=== PATIENT | female | born 1975 | race Caucasian/White ===

== ENCOUNTER → 2020-02-22 09:58 | Outpatient (CLI) | payer BC, SELFPAY ==
--- NOTE | ~2020-02-22 | MM_ITS ---
EXAMINATION: MM screening [facility] BI w lizandro HISTORY: Screening mammogram TECHNIQUE: Craniocaudal and mediolateral oblique 3-D tomosynthesis images were obtained and synthetic 2-D images were generated. CAD analysis was submitted and interpreted. COMPARISON: 02/10/2019, 01/09/2018, 11/26/2016 BREAST PARENCHYMAL COMPOSITION: The breasts are heterogeneously dense, which may obscure small masses . FINDINGS: Multiple obscured masses are seen in the breasts which do not demonstrate suspicious interv al change and are most consistent with cysts. There is no evidence of suspicious mass, calcification, or architectural distortion to suggest malignancy in either breast. There has been no suspicious int erval change. IMPRESSION: 1. No mammographic evidence of malignancy. 2. Recommend routine screening mammography in one year. BI-RADS Category 2: Benign finding(s). Reviewed, dictated and finalized at location A.
== END ==
PROVIDERS: Visit Provider Obstetrics & Gynecology
DX: Z12.31 Encounter for screening mammogram for malignant neoplasm of breast (principal)
CPT/HCPCS: 77063; 77067

== ENCOUNTER → 2021-03-30 14:38 | Outpatient (CLI) | payer BC, SELFPAY ==
--- NOTE | ~2021-03-30 | MM_ITS ---
EXAMINATION: MM screening art BI w lizandro HISTORY: Screening TECHNIQUE: Craniocaudal and mediolateral oblique 3-D tomosynthesis images were obtained and synthetic 2-D images were generated. CAD analysis was submitted and interpreted. COMPARISON: Comparison to multiple prior studies sequentially, with oldest reviewed study dated 05/17. BREAST PARENCHYMAL COMPOSITION: The breasts are heterogeneously dense, which may obscure small masses . FINDINGS: There is a developing mass in the upper outer quadrant of the right breast, middle third. T he left breast is stable without evidence for malignancy. IMPRESSION: 1. Developing right breast mass, upper outer quadrant. 2. Additional mammographic views and possible breast ultrasound are recommended. BI-RADS Category 0: Incomplete: Needs additional imaging evaluation. Reviewed, dictated and finalized at location A. IMPRESSION: 1. Developing right breast mass, upper outer quadrant. 2. Additional mammographic views and possible breast ultrasound are recommended . BI-RADS Category 0: Incomplete: Needs additional imaging evaluation.
== END ==
PROVIDERS: PCP Physician Assistant; Visit Provider Obstetrics & Gynecology
DX: Z12.31 Encounter for screening mammogram for malignant neoplasm of breast (principal); R92.8 Other abnormal and inconclusive findings on diagnostic imaging of breast
CPT/HCPCS: 77063; 77067

== ENCOUNTER → 2021-04-27 08:40 | Outpatient (CLI) | payer BC, SELFPAY ==
--- NOTE | ~2021-04-27 | MMUS_ITS ---
EXAMINATION: MM diagnostic art RT w lizandro, US breast RT limited HISTORY: Developing upper outer quadrant right breast mass reported on 03/30/2021 screening mammogram TECHNIQUE: Additional 3-D tomosynthesis images of the right breast were performed and synthetic 2-D i mages were generated. CAD analysis was submitted and interpreted. High resolution upper outer quadran t right breast ultrasound was performed. COMPARISON: 03/30/2021 bilateral digital screening mammogram FINDINGS: MAMMOGRAPHIC FINDINGS: There is an approximately 10 x 13 mm partially circumscribed mass in the upper outer quadrant of the right breast at mid depth. No other suspicious mass or architectural distortion, malignant calcification, skin thickening or ret raction is detected. ULTRASOUND: 11:00 2 cm from nipple: 1.8 x 4 mm circumscribed benign-appearing lymph node 10:00 6 cm from nipple: Complex oval circumscribed 1.4 x 0.7 x 1.4 cm mass, which is largely cystic, with thickened septa measuring up to almost 2 mm width. There is some color flow vascularity of the t hickened septal area. Ultrasound-guided biopsy is recommended. 10:00 4 cm from nipple: 2.5 x 4.2 mm circumscribed sonolucency, likely a cyst IMPRESSION: 1. Complex right breast 10:00 mass. The lesion is largely cystic, with thickened septae with vascular ity. The lesion is suspicious. 2. Ultrasound-guided biopsy is recommended at right breast 10:00 complex mass BI-RADS category 4, suspicious findings. Dr. Bergeron telephoned the report and ultrasound guided biopsy recommendation on 04/27/2021 at 1035 hours to Jamar Chadwick Reviewed, dictated and finalized at location A. IMPRESSION: 1. Complex right breast 10:00 mass. The lesion is largely cystic, with thickene d septae with vascularity. The lesion is suspicious. 2. Ultrasound-guided biopsy is recommended at right breast 10:00 complex mass BI-RADS category 4, suspicious findings. Dr. Bergeron telephoned the report and ultrasound guided biopsy recommendation on at 1035 hours to Jamar Chadwick
== END ==
PROVIDERS: PCP Physician Assistant; Visit Provider Obstetrics & Gynecology
DX: R92.8 Other abnormal and inconclusive findings on diagnostic imaging of breast (principal)
CPT/HCPCS: 76642; 77061; 77065; G0279

== ENCOUNTER → 2022-05-07 11:40 | Outpatient (CLI) | payer BC, SELFPAY ==
--- NOTE | ~2022-05-07 | MM_ITS ---
EXAMINATION: MM screening [facility] BI w lizandro HISTORY: Screening mammogram TECHNIQUE: Craniocaudal and mediolateral oblique 3-D tomosynthesis images were obtained and synthetic 2-D images were generated. CAD analysis was submitted and interpreted. COMPARISON: 04/27/2021, 03/30/2021, 02/22/2020 BREAST PARENCHYMAL COMPOSITION: The breasts are heterogeneously dense, which may obscure small masses . FINDINGS: There has been interval biopsy of a right breast mass. There is no suspicious mass, calcifi cation, or architectural distortion to suggest malignancy in either breast. There has been no suspici ous interval change. IMPRESSION: 1. No mammographic evidence of malignancy. 2. Recommend routine screening mammography in one year. BI-RADS Category 2: Benign finding(s). Reviewed, dictated and finalized at location A.
== END ==
PROVIDERS: PCP Physician Assistant; Visit Provider Obstetrics & Gynecology
DX: Z12.31 Encounter for screening mammogram for malignant neoplasm of breast (principal)
CPT/HCPCS: 77063; 77067

== ENCOUNTER → 2023-07-14 14:44 | Outpatient (CLI) | payer BC, SELFPAY ==
--- NOTE | ~2023-07-14 | MM_ITS ---
EXAMINATION: MM screening [facility] BI w lizandro HISTORY: Screening mammogram TECHNIQUE: Craniocaudal and mediolateral oblique 3-D tomosynthesis images were obtained and synthetic 2-D images were generated. CAD analysis was submitted and interpreted. COMPARISON: Serial mammogram examinations dating back to 02/10/2019 and 04/27/2021 Limited right breast ultrasound examination BREAST PARENCHYMAL COMPOSITION: The breasts are heterogeneously dense, which may obscure small masses . FINDINGS: There is asymmetry in the upper outer left breast. Diagnostic left mammogram and left breas t ultrasound examination are recommended. Otherwise no suspicious mass, architectural distortion, malignant calcification, skin thickening or r etraction or significant new or developing density of either breast is detected. There is a biopsy marker in the upper outer right breast. IMPRESSION: 1. Left upper outer quadrant mammographic asymmetry 2. Diagnostic left mammogram and left breast ultrasound examination are recommended BI-RADS Category 0: Incomplete: Needs additional imaging evaluation. Reviewed, dictated and finalized at location A. L CUTTER IMPRESSION: 1. Left upper outer quadrant mammographic asymmetry 2. Diagnostic left mammogram and left breast ultrasound examination are recomme nded BI-RADS Category 0: Incomplete: Needs additional imaging evaluation.
== END ==
PROVIDERS: PCP Obstetrics & Gynecology; Visit Provider Obstetrics & Gynecology
DX: Z12.31 Encounter for screening mammogram for malignant neoplasm of breast (principal); R92.8 Other abnormal and inconclusive findings on diagnostic imaging of breast
CPT/HCPCS: 77063; 77067

== ENCOUNTER → 2023-08-01 07:46 | Outpatient (CLI) | payer BC, SELFPAY ==
--- NOTE | ~2023-08-01 | MMUS_ITS ---
EXAMINATION: MM diagnostic art LT w lizandro, US breast LT limited HISTORY: Follow-up left breast asymmetries TECHNIQUE: Additional 3-D tomosynthesis images of the left breast were performed and synthetic 2-D im ages were generated. CAD analysis was submitted and interpreted. High resolution Limited left breast ultrasound was performed. COMPARISON: Comparison to multiple prior studies sequentially, with oldest reviewed study dated 04/12. BREAST PARENCHYMAL COMPOSITION: The breasts are heterogeneously dense, which may obscure small masses FINDINGS: MAMMOGRAPHIC FINDINGS: Asymmetries in the upper outer quadrant are not significantly changed dating back to 02/10/2019. No di screte mass or architectural distortion. No suspicious calcifications. ULTRASOUND: Limited left breast ultrasound: At 2:00, 6 cm from the nipple, there is a 4 mm cyst. At 2:00, 6 cm fr om the nipple, there is a 4 mm intramammary lymph node. At 2:00, 6 cm from the nipple, there is an ov al 3 mm hypoechoic mass with low level internal echoes, no posterior features or internal vascularity . At 2:00, 5 cm from the nipple, there is an oval hypoechoic 6 mm mass which appears solid without po sterior acoustic shadowing or internal vascularity. There is an adjacent 8 mm cyst. IMPRESSION: 1. Probable benign mass of the left breast at 2:00, 5 cm from the nipple 2. Recommend 6 month follow-up Limited left breast ultrasound BI-RADS category 3, probably benign findings. Reviewed, dictated and finalized at location A. NICS SYSTEMS TECHNICIAN IMPRESSION: 1. Probable benign mass of the left breast at 2:00, 5 cm from the nipple 2. Recommend 6 month follow-up Limited left breast ultrasound BI-RADS category 3, probably benign findings.
== END ==
PROVIDERS: PCP Obstetrics & Gynecology; Visit Provider Obstetrics & Gynecology
DX: N63.21 Unspecified lump in the left breast, upper outer quadrant (principal)
CPT/HCPCS: 76642; 77061; 77065; G0279

== ENCOUNTER 2024-02-26 08:06 | Outpatient (CLI) | payer BC, SELFPAY ==
--- NOTE | ~2024-02-26 | US_ITS ---
US breast LT limited 02/26/2024 08:27 Indication: Left breast mass follow-up Procedure: High-resolution Limited ultrasound of the left breast Comparison: 08/01/2023 Findings: At 2:00, 5 cm from the nipple, there is an oval hypoechoic 6 mm mass with parallel orientat ion, no internal vascularity and is posterior acoustic shadowing. This is unchanged from prior examin ation allowing for differences of technique. Impression: 1: Probable benign 6 mm left breast mass at 2:00, 5 cm from the nipple. BI-RADS CATEGORY 3-PROBABLY BENIGN FINDING RECOMMENDATION: Six-month follow-up diagnostic bilateral mammogram and Limited left breast ultrasound Reviewed, dictated and finalized at location B. Impression: 1: Probable benign 6 mm left breast mass at 2:00, 5 cm from the nipple. BI-RADS CATEGORY 3-PROBABLY BENIGN FINDING RECOMMENDATION: Six-month follow-up diagnostic bilateral mammogram and Limited left breast ultrasound
== END 2024-02-26 08:07 ==
PROVIDERS: PCP Physician Assistant; Visit Provider Obstetrics & Gynecology
DX: R92.8 Other abnormal and inconclusive findings on diagnostic imaging of breast (principal)
CPT/HCPCS: 76642

== ENCOUNTER 2024-10-08 13:55 | Outpatient (CLI) | payer BC, SELFPAY ==
--- NOTE | ~2024-10-08 | MMUS_ITS ---
EXAMINATION: MM diagnostic art BI w lizandro, US breast LT limited HISTORY: Follow-up left breast mass TECHNIQUE: Additional 3-D tomosynthesis images of the breasts were performed and synthetic 2-D images were generated. CAD analysis was submitted and interpreted. High resolution Limited left breast ultr asound was performed. COMPARISON: Comparison to multiple prior studies sequentially, with oldest reviewed study dated 02/2020. BREAST PARENCHYMAL COMPOSITION: Dense: The breasts are heterogeneously dense, which may obscure small masses FINDINGS: MAMMOGRAPHIC FINDINGS: The right breast is stable without evidence for malignancy. There is a small mass in the upper outer quadrant of the left breast in the retroglandular tissue, posterior third. There are no suspicious ca lcifications or architectural distortion. ULTRASOUND: Limited left breast ultrasound: There is an oval circumscribed parallel oriented hypoechoic 5 mm mass at 2:00, 5 cm from the nipple without internal vascularity, unchanged dating back to 08/01/2023. Giv en the lack of interval change is likely benign. No other masses identified. IMPRESSION: 1. Probable benign 5 mm left breast mass at 2:00, 5 cm from the nipple. 2. Recommend 6 month follow-up diagnostic left mammogram and left breast ultrasound recommended. BI-RADS category 3, probably benign findings. Reviewed, dictated and finalized at location L. NEERING AID IMPRESSION: 1. Probable benign 5 mm left breast mass at 2:00, 5 cm from the nipple. 2. Recommend 6 month follow-up diagnostic left mammogram and left breast ultras ound recommended. BI-RADS category 3, probably benign findings.
== END 2024-10-08 13:56 | disposition home or self-care (01) ==
PROVIDERS: PCP Obstetrics & Gynecology; Visit Provider Obstetrics & Gynecology
DX: Z12.31 Encounter for screening mammogram for malignant neoplasm of breast (principal); R92.8 Other abnormal and inconclusive findings on diagnostic imaging of breast
CPT/HCPCS: 76642; 77062; 77066; G0279

== ENCOUNTER 2025-04-08 07:45 | Outpatient (CLI) | payer BC, SELFPAY ==
--- NOTE | ~2025-04-08 | MMUS_ITS ---
EXAMINATION: MM diagnostic art LT w lizandor, US breast LT limited HISTORY: Six-month follow-up TECHNIQUE: 3-D tomosynthesis images of the left breast were performed and synthetic 2-D images were generated. CAD analysis was submitted and interpreted. High resolution limited left breast ultrasound was performed. COMPARISON: 10/08/2024, 08/01/2023, 07/14/2023 BREAST PARENCHYMAL COMPOSITION:Dense: The breasts are heterogeneously dense, which may obscure small masses. FINDINGS: MAMMOGRAPHIC FINDINGS: Parenchymal pattern of the left breast is unchanged. No suspicious mass lesion or distortion. No suspicious microcalcification. ULTRASOUND: At the 2:00 position left breast, 5 cm from nipple, there is a stable 4 mm hypoechoic circumscribed mass. IMPRESSION: Stable 5 mm hypoechoic circumscribed mass at the 2:00 position left breast. BI-RADS Category 2: Benign finding(s). Reviewed, dictated and finalized at location . IMPRESSION: Stable 5 mm hypoechoic circumscribed mass at the 2:00 position left breast. BI-RADS Category 2: Benign finding(s).
== END 2025-04-08 07:46 | disposition home or self-care (01) ==
LOC: MICIMG 07:46
PROVIDERS: PCP Obstetrics & Gynecology; Visit Provider Obstetrics & Gynecology
DX: R92.8 Other abnormal and inconclusive findings on diagnostic imaging of breast (principal); N63.21 Unspecified lump in the left breast, upper outer quadrant
CPT/HCPCS: 76642; 77061; 77065; G0279